=== PATIENT | female | born 1975 | race Caucasian/White ===

== ENCOUNTER 2016-04-30 13:59 | Emergency (ER) | payer SELFPAY ==
[~2016-04-30 13:59] MED LIST: *DENIES; HALF81 PO; IMDUR30 PO; LOP25 PO; NITROSTAT0.4 MG; PRILO PO; [UNRECOGNIZED DRUG - REMARK]
== END 2016-04-30 15:40 | disposition home or self-care (01) ==
LOC: ER 13:59
DX: J20.9 Acute bronchitis, unspecified (principal); R05 Cough; F17.200 Nicotine dependence, unspecified, uncomplicated; J45.909 Unspecified asthma, uncomplicated; I10 Essential (primary) hypertension; Z91.040 Latex allergy status; Z79.82 Long term (current) use of aspirin; Z79.899 Other long term (current) drug therapy
CPT/HCPCS: 71020; 94640; 96372; 99283; A9270-GY; J2930